=== PATIENT | male | born 1965 ===

== ENCOUNTER 2017-06-13 09:45 | Outpatient (CLI) | payer OTHER ==
[2017-06-16] MEDS ORDERED: ZANTAC150 MG PO (14:17)
[2017-06-16] MEDS ORDERED: LIPITOR20 MG PO (14:17)
[2017-06-16] MEDS ORDERED: PROTONIX20 MG PO (14:17)
[2017-06-16] MEDS ORDERED: NORVASC10 MG PO (14:17)
== END 2017-06-13 17:15 | disposition home or self-care (01) ==
LOC: RAD 09:45 → EDBD 09:45 → RAD 17:15
DX: K80.10 Calculus of gallbladder with chronic cholecystitis without obstruction (principal)

== ENCOUNTER 2017-06-13 10:19 | Outpatient (CLI) | payer OTHER ==
[2017-06-16] MEDS ORDERED: ZANTAC150 MG PO (14:17)
[2017-06-16] MEDS ORDERED: PROTONIX20 MG PO (14:17)
[2017-06-16] MEDS ORDERED: NORVASC10 MG PO (14:17)
[2017-06-16] MEDS ORDERED: LIPITOR20 MG PO (14:17)
== END 2017-06-13 10:23 | disposition home or self-care (01) ==
LOC: EKG 10:19
DX: K80.10 Calculus of gallbladder with chronic cholecystitis without obstruction (principal)

== ENCOUNTER 2017-06-18 05:35 | Day surgery (SDC) | payer OTHER ==
[~2017-06-18 05:35] MED LIST: LIPITOR20 MG PO; NORVASC10 MG PO; PROTONIX20 MG PO; ZANTAC150 MG PO
[2017-06-18] MEDS ORDERED: PERCOCET 5-3251 EACH PO (10:39)
[2017-06-18] MEDS ORDERED: POLY119PG PO (10:39)
== END 2017-06-18 13:20 | disposition home or self-care (01) ==
LOC: CIR.AMB 05:35
DX: K80.10 Calculus of gallbladder with chronic cholecystitis without obstruction (principal); K42.9 Umbilical hernia without obstruction or gangrene